=== PATIENT | male | born 1945 ===

== ENCOUNTER 2018-05-05 08:04 | Day surgery (SDC) | payer MEDICARE, OTHER ==
[2018-03-04 21:37] VITALS: BMI 31.1
[2018-05-05] MEDS ORDERED: Propofol 10 mg/ml Inj (20 ML) ONE ×2 (09:10)
[2018-05-05 10:45] VITALS: TEMP 97.8
[2018-05-05 12:11] VITALS: BP 125/75; PULSE 77; RESP 18; O2SAT 99
== END 2018-05-05 11:50 | disposition home or self-care (01) ==
LOC: C.ENDO 08:04
PROVIDERS: ATTEND Internal Medicine Gastroenterology
DX: Z86.010 Personal history of colon polyps (principal); R14.0 Abdominal distension (gaseous); K29.70 Gastritis, unspecified, without bleeding; D12.5 Benign neoplasm of sigmoid colon; K64.8 Other hemorrhoids
CPT/HCPCS: 43239; 45385; 82948; 88305; 88342; J2704